=== PATIENT | male | born 1990 | race Caucasian/White ===

== ENCOUNTER 2021-10-03 08:07 | Emergency (ER) | payer MEDICAID, OTHER ==
[~2021-10-03] VITALS: Ht 160 cm; Wt 72.6 kg
[2021-10-03] MEDS ORDERED: BUPRENORPHINE HCL 2 MG TAB.SUBL SL ONE ×2 (08:45→08:54)
--- NOTE | 2021-10-03 08:53 | NUR ---
Patient discharged to home in stable condition. Written and verbal after care instructions given. Patient verbalizes understanding of instructions. Stressed follow up or return to ER for worsening s/s.
[2021-10-03 09:05] VITALS: BP 119/72
== END 2021-10-03 08:53 | disposition home or self-care (01) ==
LOC: ER 08:07 → EDBD 08:07 → ER 08:53
DX: F11.23 Opioid dependence with withdrawal (principal)
CPT/HCPCS: A4663